=== PATIENT | female | born 1965 | race Hispanic/Latino ===

== ENCOUNTER → 2024-04-14 | Outpatient (CLI) | payer MEDICAID, OTHER | END | disposition home or self-care (01) | LOC: RAH 09:12 | DX: M47.812 Spondylosis without myelopathy or radiculopathy, cervical region (principal); S19.9XXS Unspecified injury of neck, sequela; X58.XXXS Exposure to other specified factors, sequela | CPT/HCPCS: 72040 ==

== ENCOUNTER → 2024-04-15 | Outpatient (CLI) | payer OTHER | END | disposition home or self-care (01) | LOC: RAH 08:43 | DX: Z12.31 Encounter for screening mammogram for malignant neoplasm of breast (principal); R92.323 Mammographic fibroglandular density, bilateral breasts | CPT/HCPCS: 77067 ==

== ENCOUNTER 2024-09-25 00:13 | Emergency (ER) | payer OTHER ==
[~2024-09-25] VITALS: Ht 144.8 cm; Wt 81.6 kg
[2024-09-25 00:14] VITALS: TEMP 97.9
[2024-09-25] MEDS: dexaMETHasone SOD PHOSPHATE 4 MG/ML 1ML VIAL IM ONE (00:31)
[2024-09-25] MEDS: prednisoLONE 15 MG/5 ML SOLN PO STA (00:31)
[2024-09-25] MEDS ORDERED: LORA10TA7 PO (01:25)
[2024-09-25] MEDS ORDERED: PRED10TA23 PO (01:25)
--- NOTE | 2024-09-25 01:26 | ERN ---
General Chief Complaint: Allergic Reaction Stated Complaint: ALLERGIC REACTION Time Seen by MD: 00:15 Source: patient History of Present Illness Initial Comments Patient is a 59-year-old female coming in to be evaluated for allergic reaction. Per patient she states that she was eating some hot Cheetos and felt it was in the throes decided to come in to be evaluated. Patient did take Benadryl at home. Allergies: Coded Allergies: Penicillins (Unverified Allergy, Unknown, 09/25/24) Past Medical History Past Medical History: No Pertinent History Past Surgical History: Other Surgical History Other: EYES ROS Dictation CONSTITUTIONAL: No chills, no fever, no weakness, no diaphoresis, no malaise. HEAD/FACE: No signs of trauma. EENT: No eye pain, no blurred vision, no tearing, no double vision, no ear pain, no ear discharge, no nose pain, no nasal congestion, no throat pain, no t hroat swelling, no mouth pain. RESPIRATORY: No cough, no orthopnea, no SOB, no stridor, no wheezing. CARDIOVASCULAR: No chest pain, no edema, no palpitations, no syncope. GASTROINTESTINAL/ABDOMINAL: No abdominal pain, no constipation, no diarrhea, n o nausea, no vomiting. GENITOURINARY: No abnormal discharge, no dysuria, no frequent urination, no hematuria. No complaints of pain in the genitals. MUSCULOSKELETAL: No back pain, no gout, no joint pain, no joint swelling, no muscle pain, no muscle stiffness, no neck pain. INTEGUMENTARY: No change in color, no change in hair/nails, no dryness, no lesion, no lumps, no rash. NEUROLOGICAL/PSYCH: No anxiety, not depressed, no emotional problem, no headache, no numbness, no pre-existing deficit, no history of seizures, no tremors, no weakness. HEMATOLOGIC/LYMPHATIC: Not anemic, no history of blood clots, no apparent bleeding, no bruising, glands not swollen. All Systems Negative, Except as Noted. Physical Exam Physical Exam Dictation VITAL SIGNS: Reviewed. GENERAL APPEARANCE: Alert, oriented x3, no acute distress, obese. HEAD AND FACE: Non-traumatic. EYES: PERRL, pink conjunctivas, eyelid no trauma, anterior chamber clear. EARS: Pinnas intact and no signs of trauma or erythema. Ear canals clear and no discharge. TMs no erythema. NOSE: No discharge, no bleeding. OROPHARYNX: Mouth normal, teeth no caries, tongue pink. Pharynx clear, no erythema. Tonsils no exudates, no abscesses noted. Mucous membrane moist. NECK: Supple, non-tender, no thyromegaly, no masses, no JVD, no bruits. BREAST: Deferred. CHEST: No tenderness, no crepitus, no paradoxical movement, no retractions. LUNGS: Clear, well-ventilated, symmetric, no rales, no wheezing, no rhonchi, no stridor, good breath sounds bilaterally. HEART: Regular rate, regular rhythm, no murmur, no gallops. VASCULAR: No peripheral edema. ABDOMEN: Soft, positive bowel sounds, nondistended, no guarding, nontender, no rebound, no masses no hepatomegaly, no splenomegaly, no Oscar's sign, no hernias. RECTAL: Deferred. GENITAL: Deferred. NEUROLOGICAL: Normal speech, gross motor function intact, gross sensory function intact. MUSCULOSKELETAL: Neck nontender, full range of motion, back nontender, full range of motion. EXTREMITIES: Nontender, full range of motion. SKIN: Color pink, dry, no turgor, no rash, no lacerations, no abrasions, no contusions. LYMPHATICS: Deferred. Results Laboratory and Microbiology Labs Reviewed?: Yes MDM MDM: Differential diagnosis: Allergic reaction, irritation of the throat Patient is a 59-year-old female coming in to be evaluated for itchy throat secondary to keto consumption. Patient received oral steroids as well as an IM injection. She was a symptoms improved significantly. Patient will be discharged with a diagnosis of allergic reaction. Medication will be provided for symptomatic relief also advised her appropriate follow up with PCP in 1-2 days. ED Course Orders Procedure Category Date Status Time Dexamethasone 4mg/Ml PHA 09/25/24 Complete 1ml Vial (Dexametha 00:30 Prednisolone 15mg/5ml PHA 09/25/24 Complete Soln (Orapred 15mg 00:18 Current Medications Medications (Trade) Dose Ordered Sig/Joanie Route PRN Reason Start Time Stop Time Status Last Admin Dose Admin Dexamethasone Sodium Phosphate (dexaMETHasone 4MG/ML 1ML VIAL) 4 mg ONCE ONCE IM 09/25/24 00:30 09/25/24 00:31 DC 09/25/24 00:31 Prednisolone Sodium Phosphate (oraPRED 15MG/ 5ML SOLN) 20 mg ONCE STAT PO 09/25/24 00:18 09/25/24 00:19 DC 09/25/24 00:31 Vital Signs Date Time Temp Pulse Resp B/P (MAP) Pulse Ox O2 Delivery O2 Flow Rate FiO2 09/25/24 00:50 78 16 146/60 98 Room Air* 0 21 09/25/24 00:14 97.9 88 18 168/87 98 Room Air DX & DISP Disposition: Discharge Departure Impression: Primary Impression: Allergic reaction Condition: Stable Scripts Loratadine (Loratadine) 10 Mg Tablet 1 TAB PO DAILY for allergy symptoms for 30 Days, #30 TAB 0 Refills Prov: ISREAL BENTLEY MD 09/25/24 Prednisone (Prednisone) 10 Mg Tab.ds.pk 1 TAB PO DAILY for 5 Days, #5 TAB 0 Refills Prov: ISREAL BENTLEY MD 09/25/24 Additional Instructions: FOLLOW-UP WITH PRIMARY CARE PROVIDER IN 1 TO 2 DAYS. TAKE MEDICATIONS DIRECTED HERE IN THE EMERGENCY ROOM. OKAY TO CONTINUE HOME MEDICATIONS UNLESS OTHERWISE DISCUSSED DURING YOUR VISIT IN THE EMERGENCY ROOM TODAY. RETURN TO YOUR NEAREST EMERGENCY ROOM IF SYMPTOMS WORSEN OR IF THERE IS NO IMPROVEMENT. CALL 911 IF YOU NEED IMMEDIATE ASSISTANCE. TAKE TYLENOL [id number] NEEDED AND IF NO CONTRAINDICATIONS ARE PRESENT. INCREASE ORAL HYDRATION. A WOUND CULTURE OR URINE CULTURE WAS ORDERED HERE IN THE EMERGENCY ROOM DEPARTMENT PLEASE FOLLOW-UP WITH PRIMARY CARE PROVIDER AND ADVISE THEM TO GET REPEAT PORTS FROM OUR FACILITY. IF YOU HAD ANY LUZMARIA WRAP/SPLINTS THAT WERE APPLIED HERE, PLEASE DO NOT REMOVE THEM UNTIL YOU SEE YOUR PRIMARY CARE OR SPECIALTY. Referrals: Referrals: COBY GONZALES MD (PCP) Time of Disposition: 01:24 ISREAL BENTLEY MD Sep 25, 2024 01:26
[2024-09-25 01:38] VITALS: BP 137/71; PULSE 76; RESP 16; O2SAT 98
== END 2024-09-25 01:40 | disposition home or self-care (01) ==
LOC: EDH 00:13
DX: T78.40XA Allergy, unspecified, initial encounter (principal); Z88.0 Allergy status to penicillin; X58.XXXA Exposure to other specified factors, initial encounter
CPT/HCPCS: 99283; 96372; J1100

== ENCOUNTER 2024-12-12 21:05 | Emergency (ER) | payer OTHER ==
[~2024-12-12] VITALS: Ht 144.8 cm; Wt 83.5 kg
[~2024-12-12 21:05] MED LIST: LORA10TA7 PO; PRED10TA23 PO
--- NOTE | 2024-12-12 21:24 | ERN ---
ED Note History of Present Illness Stated Complaint: PAIN IN RIGHT ARM, HEADACHES,DIZZINESS Chief Complaint: Upper Extremity Pain/Injury Time Seen by MD: 21:10 Dictation: This is a 59-year-old female who presented to the emergency room with complaints of right arm pain headache and dizziness going on for a few days. She also reported nausea no vomitings. She has a history of seasonal allergies. No fevers chills or rigors. Headaches are chronic headaches. The pain in the right upper extremity is mostly in the shoulder area it is reproducible and pain is more when she moves her shoulder. She denied any dizziness to mi Temperature 97.2 pulse 83 respirations 18 blood pressure 177/94 with a pulse oximetry of 97% on room air Allergies: Coded Allergies: Penicillins (Unverified Allergy, Unknown, 09/25/24) Home Meds Active Scripts Meloxicam (Meloxicam) 7.5 Mg Tablet, 1 TAB PO DAILY for 10 Days, #10 TAB 0 Refills Prov:JOY MENESES MD 12/12/24 Prednisone (Prednisone) 20 Mg Tablet, 1 TAB PO DAILY for 5 Days, #5 TAB 0 Refills Prov:JOY MENESES MD 12/12/24 Loratadine (Loratadine) 10 Mg Tablet, 1 TAB PO DAILY for allergy symptoms for 30 Days, #30 TAB 0 Refills Prov:ISREAL BENTLEY MD 09/25/24 Prednisone (Prednisone) 10 Mg Tab.ds.pk, 1 TAB PO DAILY for 5 Days, #5 TAB 0 Refills Prov:ISREAL BENTLEY MD 09/25/24 Past Medical History Past Medical History: Other Additional Past Medical Hx: SEASONAL ALLERGIES Surgical History: Other Surgical History Other: EYES Family History: Negative History: Not Applicable RN Note Reviewed/Agreed w/PFSH: Yes Review of System Dictation As described in the history of present illness Constitutional: Negative for fever,chills, and weight loss Eyes: Negative for injury, pain,redness, and discharge ENT: Negative for injury,pain or swelling Cardiovascular: Negative for chest pain, palpitations, and edema Respiratory: Negative for shortness of breath, cough, and wheezing, Abdomen/GI: Negative for abdominal pain, nausea, vomiting, diarrhea, and constipation Back: Negative for injury and pain : Negative for injury, bleeding and discharge MS/Extremity: Negative for injury and deformity right shoulder pain Skin: Negative for rash, and discoloration Neuro: Negative for headache, weakness, numbness, tingling, and seizure Psych: Negative for suicide ideation, homicidal ideation, and hallucinations Initial Vital Sign VS Vital Signs Date Time Temp Pulse Resp B/P (MAP) Pulse Ox O2 Delivery O2 Flow Rate FiO2 12/12/24 21:05 97.2 83 18 177/94 97 Room Air 12/12/24 21:27 0 21 Physical Exam Dictation General: awake, alert, NAD morbidly obese Head/Face: Normocephalic, atraumatic Eyes: PERRL, EOMI, vision at baseline ENT: oral cavity clear, TMs clear, no signs of infection Neck: Trachea midline, supple, no nuchal rigidity Cardiovascular: RRR, normal S1/S2, No MRGs, no JVD Respiratory: CTAB, no respiratory distress, No rales or wheezes Abdomen: Soft, non-tender, non-distended, normal bowel sounds, no guarding or rebound. Skin: Warm, dry, normal turgor, no rash MS/Extremity: Pulses equal, no cyanosis, neurovascular intact, FROM mild tenderness on palpation of the right shoulder anteriorly. No deformity no reduced range of motion Neuro: COAx4, GCS 15, strength 5/5, CN 2-12 intact, normal cerebellar exam, normal gait, Psych: Normal behavior, mood, and affect normal Extremities-trace edema without any palpable cords, Homans sign is negative Results (Laboratory/Radiology) Laboratory/Radiology Laboratory Tests Test 12/12/24 21:25 White Blood Count 6.7 K/uL (4.8-10.8) Red Blood Count 4.54 MIL/uL (4.00-5.50) Hemoglobin 14.0 g/dL (12.0-16.0) Hematocrit 41.3 % (36-48) Mean Corpuscular Volume 91.0 fL (79-99) Mean Corpuscular Hemoglobin 30.8 pg (27.0-33.0) Mean Corpuscular Hemoglobin Concent 33.9 g/dL (32.0-36.0) Red Cell Distribution Width 12.8 % (11.0-15.5) Platelet Count 222 K/uL (130-400) Mean Platelet Volume 11.1 fL (7.5-10.5) H Immature Granulocyte % (Auto) 0.3 % (0-1) Neutrophils (%) (Auto) 54.9 % (40.0-77.0) Lymphocytes (%) (Auto) 34.8 % (21.0-51.0) Monocytes (%) (Auto) 8.2 % (3.0-13.0) Eosinophils (%) (Auto) 1.5 % (0.0-8.0) Basophils (%) (Auto) 0.3 % (0.0-5.0) Neutrophils # (Auto) 3.7 K/uL (1.8-7.7) Lymphocytes # (Auto) 2.3 K/uL (1.0-4.8) Monocytes # (Auto) 0.6 K/uL (0.1-1.0) Eosinophils # (Auto) 0.10 K/uL (0.00-0.70) Basophils # (Auto) 0.02 K/uL (0.00-0.20) Absolute Immature Granulocyte (auto 0.02 K/uL (0-1) Nucleated Red Blood Cells 0.0 % (0.0-0.19) Sodium Level 134 mmol/L (136-145) L Potassium Level 3.7 mmol/L (3.5-5.1) Chloride Level 100 mmol/L (101-111) L Carbon Dioxide Level 28 mmol/L (21-32) Blood Urea Nitrogen 16 mg/dL (7-18) Creatinine 0.7 mg/dL (0.5-1.0) Glomerular Filtration Rate Calc 98 mL/min (>90) Random Glucose 117 mg/dL (70-105) H Total Calcium 8.6 mg/dL (8.5-10.1) Total Creatine Kinase 112 U/L (21-232) Troponin I High Sensitivity < 4.0 ng/L (4-50) L B-Type Natriuretic Peptide 11 pg/mL (0-100) Labs Reviewed?: Yes EKG Comment: Twelve lead EKG done on 12/12/2024 at 9:15 p.m. showed a heart rate of 80, MT interval 153, QRS 76, QT/QTC 368/425 Impression normal sinus rhythm with nonspecific ST-T changes no acute ST elevations noted. Interpreted by ER MD [facility] X-RAY Comment: PATIENT: GIBRAN MARSH MR#: [id number] : 1965 SEX: F AGE: 59 LOCATION: [facility] ORDER 10 STATUS: REG ER REPORT#: [id number] SERVICE 09 REASON: CHEST PAIN ORDERING PHYSICIAN: JOY MENESES MD PROCEDURE: CXR1VW - CHEST 1VW CHEST 1VW CLINICAL HISTORY: CHEST PAIN COMPARISON: None TECHNIQUE: Single view of the chest was obtained. FINDINGS: Lungs are clear. The cardiac size and mediastinum are unremarkable. The bony structures are within normal limits. IMPRESSION: No acute cardiopulmonary process identified. DICTATED BY: DEREK WOOD DO DATE: 12/12/242157 ELECTRONICALLY SIGNED BY: DEREK WOOD DO DATE: 12/12/242200 ED Course ED Course Orders Procedure Category Date Status Time Vital Signs Per CPOE 12/12/24 Transmitted Routine 21:10 B-Type Natriuretic LAB 12/12/24 Complete Peptide 21:10 Chest 1vw RAD 12/12/24 Resulted 21:10 12 Lead Ekg Tracing- EKG 12/12/24 Logged Technical 21:10 Oxygen By Nc/Pulse Ox CPOE 12/12/24 Transmitted 21:10 Maintain Iv CPOE 12/12/24 Transmitted 21:10 Iv Insertion CPOE 12/12/24 Transmitted 21:10 Cardiac Monitoring CPOE 12/12/24 Transmitted 21:10 Pulse Oximetry With CPOE 12/12/24 Transmitted Vs And Prn 21:10 Cbc With Differential LAB 12/12/24 Complete 21:10 Activity: Br W/Brp CPOE 12/12/24 Transmitted With Assist 21:10 Urinalysis Profile LAB 12/12/24 Logged 21:10 Bedside Troponin-I LAB.ER 12/12/24 In Process (Poc) 21:10 Basic Metabolic Panel LAB 12/12/24 Complete 21:10 Cardiac Panel LAB 12/12/24 Complete 21:10 Ketorolac PHA 12/12/24 Complete Tromethamine 30mg/Ml 23:30 Methylprednisolone PHA 12/12/24 Complete Succ 40mg (Solu-Medro 23:30 Current Medications Medications (Trade) Dose Ordered Sig/Joanie Route PRN Reason Start Time Stop Time Status Last Admin Dose Admin Ketorolac Tromethamine (toRADol) 30 mg ONCE ONCE IVP 12/12/24 23:30 12/12/24 23:31 DC 12/12/24 23:24 Methylprednisolone Sodium Succinate (Solu-medROL 40MG) 40 mg ONCE ONCE IVP 12/12/24 23:30 12/12/24 23:31 DC 12/12/24 23:24 Vital Signs Date Time Temp Pulse Resp B/P (MAP) Pulse Ox O2 Delivery O2 Flow Rate FiO2 12/12/24 23:15 97.9 69 15 135/70 97 Room Air* 0 21 12/12/24 22:15 98.1 75 16 145/73 98 Room Air* 0 21 12/12/24 21:27 98.1 83 18 154/67 97 Room Air* 0 21 12/12/24 21:05 97.2 83 18 177/94 97 Room Air We will perform diagnostic labs, advanced imaging and administer medications according to the patient's complaint. Once the results are available, will review and personally interpreted the labs to rule out any acute life- threatening emergency the trach require immediate intervention and treatment. I will then re-evaluate the patient after treatment and diagnostic exams have return to determine whether the patient requires any further testing, can safely be discharged home or need further admission to hospital for additional treatment and evaluation. 11:15 p.m. labs reviewed CBC with a normal limits BNP 7 showed a sodium of 134 BUN and creatinine are 16 and 0.7 P Chest x-ray pending 12:24 a.m.-chest x-ray was negative for any acute infiltrate and the portions of shoulder that were included did not show any fracture dislocation. I updated the patient on all the available information and recommended that she follow up with Orthopedics as outpatient for re-evaluation of the shoulder Medical Decision Making MDM MDM: Differential diagnosis: Right shoulder arthritis, rotator cuff tear, impingement of the nerve, pain radiating from the neck Rationale: Tests considered and ordered secondary to shared decision making include: Previous outside records reviewed: Old ER visits. Risk of complication and/or morbidity or mortality of patient management: None Medications-Per medication reconciliation Need for hospitalization: Patient does not meet criteria for hospitalization. Need for emergency major/minor surgery: No There are no social concerns with this patient. Prescription drug management Prescriptions will include symptomatic care Patient's prior external medical records from other ER visits were reviewed by me as indicated. Prior testing and results from previous visits were reviewed. Prior tests were taken into account with medical decision making and resource utilization, independent historian/historians were used to obtain complete medical history. I independently interpreted the test that were performed, results were reviewed by me and considered findings on radiology if ordered. Medical management and examination interpretation discussions were had by me with other qualified healthcare professionals as indicated for the patient's care. Problem List Problem List: (1) Right shoulder pain (2) Arthritis, shoulder region DX & DISP Disposition: Discharge Departure Impression: Primary Impression: Right shoulder pain Additional Impression: Arthritis, shoulder region Condition: Stable Scripts Meloxicam (Meloxicam) 7.5 Mg Tablet 1 TAB PO DAILY for 10 Days, #10 TAB 0 Refills Prov: JOY MENESES MD 12/12/24 Prednisone (Prednisone) 20 Mg Tablet 1 TAB PO DAILY for 5 Days, #5 TAB 0 Refills Prov: JOY MENESES MD 12/12/24 Additional Instructions: Patient and the caregiver have been informed of all the diagnostic tests and the imaging conducted during the today's visit to the emergency room and has verbalized understanding of the results I have personally reviewed and interpreted all diagnostic exams performed here in the ER today as well as the vital signs documented by the nursing staff. The patient is now being discharged to home and should follow up with the primary care physician or the specialist as directed by the ER staff. Follow-up with primary care provider in 1 to 2 days. Take medications as directed here in the emergency room. Okay to continue home medications unless otherwise discussed during your visit in the emergency room today. Return to your nearest emergency room if symptoms worsen or if there is no improvement. Call 911 if you need immediate assistance. Take Tylenol or Motrin [id number] as needed and if no contraindications are present. Increase oral hydration. A wound culture or urine culture was ordered here in the emergency room department please follow-up with primary care provider and advise them to get repeat ports from our facility. If you had any Jesu wrap/splints that were applied here, please do not remove them until you see your primary care or specialty. Referrals: COBY GONZALES MD (PCP) SIMBA TREVIÑO MD, ANURADHA R MD Dec 12, 2024 21:24
[2024-12-12 21:34] LABS: BASOPHILS # (AUTO) 0.02 K/uL (0.00-0.20); BASOPHILS % (AUTO) 0.3 % (0.0-5.0); EOSINOPHILS % (AUTO) 1.5 % (0.0-8.0); HEMATOCRIT 41.3 % (36-48); IMMATURE GRANULOCYTE ABSOLUTE 0.02 K/uL (0-1); LYMPHOCYTES # (AUTO) 2.3 K/uL (1.0-4.8); LYMPHOCYTES % (AUTO) 34.8 % (21.0-51.0); MEAN CORPUSCULAR HEMOGLOBIN 30.8 pg (27.0-33.0); MEAN CORPUSCULAR HGB CONC 33.9 g/dL (32.0-36.0); MONOCYTES # (AUTO) 0.6 K/uL (0.1-1.0); MONOCYTES % (AUTO) 8.2 % (3.0-13.0); NEUTROPHILS # (AUTO) 3.7 K/uL (1.8-7.7); NEUTROPHILS % (AUTO) 54.9 % (40.0-77.0); PLATELET COUNT (AUTO) 222 K/uL (130-400); RED BLOOD CELL COUNT(AUTO) 4.54 MIL/uL (4.00-5.50); RED CELL DISTRIBUTION WIDTH 12.8 % (11.0-15.5); WHITE BLOOD COUNT (AUTO) 6.7 K/uL (4.8-10.8)
[2024-12-12 21:48] LABS: CARBON DIOXIDE 28 mmol/L (21-32); CHLORIDE 100 mmol/L (101-111); CREATININE 0.7 mg/dL (0.5-1.0); GLOMERULAR FILTR. RATE CALC 98 mL/min (>90); GLUCOSE,RANDOM 117 mg/dL (70-105); POTASSIUM 3.7 mmol/L (3.5-5.1); SODIUM SERUM 134 mmol/L (136-145); UREA NITROGEN, BLOOD 16 mg/dL (7-18)
[2024-12-12 21:56] LABS: CREATINE KINASE, TOTAL 112 U/L (21-232)
--- NOTE | 2024-12-12 22:01 | HMCIMG ---
CHEST 1VW CLINICAL HISTORY: CHEST PAIN COMPARISON: None TECHNIQUE: Single view of the chest was obtained. FINDINGS: Lungs are clear. The cardiac size and mediastinum are unremarkable. The bony structures are within normal limits. IMPRESSION: No acute cardiopulmonary process identified.
[2024-12-12 22:07] LABS: B-TYPE NATRIURETIC PEPTIDE 11 pg/mL (0-100)
[2024-12-12] MEDS ORDERED: PRED20TA3 PO (23:06)
[2024-12-12] MEDS ORDERED: MELO-106 PO (23:06)
[2024-12-12] MEDS: ketOROlac 30MG VIAL (30MG/ML) IVP ONE (23:24)
[2024-12-12] MEDS: Solu-medROL 40MG VIAL IVP ONE (23:24)
[2024-12-13 00:22] VITALS: BP 136/64; PULSE 71; RESP 17; TEMP 98; O2SAT 98
--- NOTE | 2024-12-13 07:10 | EKG ---
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
== END 2024-12-13 00:41 | disposition home or self-care (01) ==
LOC: EDH 21:05
DX: M25.511 Pain in right shoulder (principal); M19.011 Primary osteoarthritis, right shoulder; Z79.1 Long term (current) use of non-steroidal anti-inflammatories (NSAID); Z79.52 Long term (current) use of systemic steroids; Z88.0 Allergy status to penicillin; Z79.899 Other long term (current) drug therapy
CPT/HCPCS: 99285; 96374; 71045; 96375; 82550; 84484; 80048; 83880; 85025; 36415; 93005; J1885; J2919

== ENCOUNTER → 2024-12-17 | Outpatient (CLI) | payer OTHER ==
[~2024-12-17] MED LIST changes: +MELO-106 PO; +PRED20TA3 PO
--- NOTE | 2024-12-17 11:13 | HMCIMG ---
RIGHT HUMERUS RADIOGRAPHS - 2 VIEWS INDICATION: Pain COMPARISON: None FINDINGS: AP and lateral views. No acute fracture or subluxation identified. No radiopaque foreign body noted. IMPRESSION: No evidence for fracture or dislocation.
--- NOTE | 2024-12-17 11:13 | HMCIMG ---
RIGHT SHOULDER RADIOGRAPHS - 2-3 VIEWS INDICATION: Pain COMPARISON: None FINDINGS: No fracture or dislocation identified. Acromioclavicular and glenohumeral alignments are well maintained. Visible portions of the right clavicle are intact. Moderate narrowing of the acromiohumeral space and mild inferior acromial spurring. IMPRESSION: Findings suggesting at least mild to moderate external impingement.
== END | disposition home or self-care (01) ==
LOC: RAH 10:36
PROVIDERS: ATTEND Internal Medicine
DX: M25.511 Pain in right shoulder (principal)
CPT/HCPCS: 73030; 73060